=== PATIENT | female | born 1995 | race Caucasian/White ===

== ENCOUNTER 2019-02-02 10:06 | Emergency (ER) | payer OTHER ==
[~2019-02-02] VITALS: Ht 160 cm; Wt 65.3 kg
[2019-02-02 10:11] VITALS: Ht 160 cm; Wt 65.3 kg
[2019-02-02 12:25] VITALS: BP 118/67
== END 2019-02-02 12:25 | disposition home or self-care (01) ==
LOC: ED 10:06
DX: G44.209 Tension-type headache, unspecified, not intractable (principal); Z98.890 Other specified postprocedural states; Z90.89 Acquired absence of other organs
CPT/HCPCS: J0780; J1885; Q0162

== ENCOUNTER 2019-02-03 07:34 | Emergency (ER) | payer OTHER ==
[~2019-02-03] VITALS: Ht 157.5 cm; Wt 71.7 kg
[2019-02-03 07:47] VITALS: Ht 157.5 cm; Wt 71.7 kg
[2019-02-03 09:40] VITALS: BP 128/74
== END 2019-02-03 09:40 | disposition home or self-care (01) ==
LOC: ED 07:34
DX: G44.209 Tension-type headache, unspecified, not intractable (principal)
CPT/HCPCS: J0780; J1885